=== PATIENT | male | born 1975 | race Caucasian/White ===

== ENCOUNTER 2023-04-06 16:21 | Emergency (ER) | payer OTHER ==
--- NOTE | 2023-04-06 17:22 | RAD REPORT ---
EXAM DESCRIPTION: RAD - Chest Single View - 04/06/2023 5:13 pm CLINICAL HISTORY: syncope Chest pain. COMPARISON: <Comparisons> FINDINGS: Portable technique limits examination quality. The lungs are grossly clear. The heart is normal in size. No displaced fractures. IMPRESSION: No acute intrathoracic process suspected.
[2023-04-06 17:28] LABS: Absolute Lymphocytes (CBC) 1.3 K/uL (0.7-4.9); Hematocrit 40.7 % (39.6-49.0); Lymphocytes % 10.2 % (15.3-44.8); MCV 96.1 fL (80-100); MPV 9.2 fL (7.6-11.3); Platelets 163 thou/uL (152-406); RBC Red Blood Cell Count 4.24 M/uL (4.33-5.43)
[2023-04-06 17:42] LABS: Albumin 3.3 g/dL (3.4-5.0); Bilirubin Direct 0.1 mg/dL (0-0.2); Bilirubin Indirect, Calculated 0.2 mg/dL (0.2-0.8); Bilirubin Total 0.3 mg/dL (0.2-1.0); Magnesium 1.9 mg/dL (1.6-2.4); Potassium 3.7 mEq/L (3.5-5.1); Protein, Total 6.3 g/dL (6.4-8.2); Thyroid Stimulating Hormone 1.88 uIU/mL (0.358-3.740); Troponin High Sensitivity 3.9 pg/mL (<58.9)
--- NOTE | 2023-04-06 18:03 | RAD REPORT ---
EXAM DESCRIPTION: CT - CTHCSPWOC - 04/06/2023 5:41 pm CLINICAL HISTORY: Trauma, head and neck injury. TRAUMA COMPARISON: No comparisons TECHNIQUE: Axial 5 mm thick images of the head were obtained. Axial 2 mm thick images of the cervical spine were obtained with sagittal and coronal reconstruction images generated and reviewed. All CT scans are performed using dose optimization technique as appropriate and may include automated exposure control or mA/KV adjustment according to patient size. FINDINGS: CT HEAD WITHOUT CONTRAST: No acute hemorrhage, hydrocephalus or extra-axial collection is identified.No areas of brain edema or midline shift. The paranasal sinuses and mastoids are clear.The calvarium is intact. CT CERVICAL SPINE WITHOUT CONTRAST: No fracture or subluxation.Prominent spondylosis with posterior osteophytes C5-6.No prevertebral soft tissues swelling is identified. IMPRESSION: No acute intracranial or cervical spine findings.
--- NOTE | 2023-04-06 18:40 | ER ---
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 ll1 EMS states: HR 50's , BP 60/40. 1 L NS bolus given, atropine .5 IV. Coronavirus screen: Client denies travel out of the [place] in the last 14 days. At this time, the client does not indicate any symptoms associated with coronavirus-19. Ebola Screen: Patient denies travel to an Ebola-affected area in the 21 days before illness onset. Initial Sepsis Screen: Does the patient meet any 2 criteria? No. Patient's initial sepsis screen is negative. Does the patient have a suspected source of infection? No. Patient's initial sepsis screen is negative. Risk Assessment: Do you want to hurt yourself or someone else? Patient reports no desire to harm self or others. Onset of symptoms was April 06, 2023. 16:51 Method Of Arrival: EMS: [facility] ll1 16:51 Acuity: REY 2 ll1 Triage Assessment: 16:50 General: Appears in no apparent distress. comfortable, Behavior is calm, cooperative, ld1 appropriate for age. Pain: Complains of pain in scalp Pain does not radiate. Pain currently is 7 out of 10 on a pain scale. Quality of pain is described as throbbing. EENT: No signs and/or symptoms were reported regarding the EENT system. EENT:. Neuro: Level of Consciousness is awake, alert, obeys commands, Oriented to person, place, time, situation, Reports dizziness, headache a syncopal episode. Cardiovascular: Capillary refill < 3 seconds Patient's skin is warm and dry. Rhythm is sinus rhythm. Respiratory: Airway is patent Respiratory effort is even, unlabored. GI: Abdomen is flat, non-distended. : No signs and/or symptoms were reported regarding the genitourinary system. Derm: No signs and/or symptoms reported regarding the dermatologic system. Musculoskeletal: No signs and/or symptoms reported regarding the musculoskeletal system. Historical: - Allergies: 16:53 No Known Allergies; ll1 - PMHx: 16:53 None; ll1 - PSHx: 16:53 None; ll1 - Immunization history:: Adult Immunizations up to date. - Social history:: Smoking status: Reported history of juuling and/or vaping. Smoking status: Patient reports the use of cigarette tobacco products, smokes one-half pack cigarettes per day. - Family history:: not pertinent. Screenin:05 [facility] ED Fall Risk Assessment (Adult) History of falling in the last 3 months, ld1 including since admission Yes- single mechanical fall (1 pt). Abuse screen: Denies threats or abuse. Denies injuries from another. Nutritional screening: No deficits noted. Tuberculosis screening: No symptoms or risk factors identified. Assessment: 17:05 General: Appears in no apparent distress. comfortable, Behavior is calm, cooperative, ld1 appropriate for age. Pain: Complains of pain in scalp Pain does not radiate. Pain currently is 8 out of 10 on a pain scale. Quality of pain is described as throbbing. Neuro: Level of Consciousness is awake, alert, obeys commands, Oriented to person, place, time, situation. Neuro: Reports dizziness, headache a syncopal episode. Cardiovascular: Capillary refill < 3 seconds Patient's skin is warm and dry. Rhythm is sinus rhythm. Respiratory: Airway is patent Respiratory effort is even, unlabored. GI: Abdomen is flat, non-distended. : No signs and/or symptoms were reported regarding the genitourinary system. EENT: No signs and/or symptoms were reported regarding the EENT system. Derm: No signs and/or symptoms reported regarding the dermatologic system. Musculoskeletal: No signs and/or symptoms reported regarding the musculoskeletal system. 18:02 Reassessment: Patient appears in no apparent distress at this time. No changes from ld1 previously documented assessment. Patient and/or family updated on plan of care and expected duration. Pain level reassessed. Patient is alert, oriented x 3, equal unlabored respirations, skin warm/dry/pink. Patient denies pain at this time. Vital Signs: 16:50 BP 110 / 71; Pulse 75; Resp 18; Temp 98(O); Pulse Ox 100% on R/A; Weight 83.91 kg; ld1 Height 6 ft. 1 in. ; Pain 2/10; 16:51 Weight 81.65 kg; Height 6 ft. 1 in. ; Pain 0/10; ll1 18:02 BP 116 / 65; Pulse 64; Resp 16; Pulse Ox 99% on R/A; Pain 0/10; ld1 16:51 Body Mass Index 23.75 (81.65 kg, 185.42 cm) ll1 16:50 Pain Scale: Adult ld1 16:51 Pain Scale: Adult ll1 18:02 Pain Scale: Adult ld1 ED Course: 16:50 Patient arrived in ED. ld1 16:50 Asher Bello MD is Attending Physician. rt 16:52 Triage completed. ll1 16:55 Leyda Vazquez RN is Primary Nurse. ld1 17:05 Patient has correct armband on for positive identification. Placed in gown. Bed in low ld1 position. Call light in reach. Side rails up X2. shipboard intelligence analyst on. Pulse ox on. NIBP on. Door closed. Noise minimized. Warm blanket given. 17:05 No provider procedures requiring assistance completed. Inserted saline lock: 22 gauge ld1 in right forearm, using aseptic technique. Blood collected. Missed attempt(s): 20 gauge in right forearm. 17:07 IV discontinued, intact, bleeding controlled, No redness/swelling at site. Pressure ll1 dressing applied. 17:15 XRAY Chest (1 view) In Process Unspecified. EDMS 17:40 CT Head C Spine In Process Unspecified. EDMS 18:39 Neri Longoria MD is Referral Physician. rt 18:42 Arm band placed on left wrist. ld1 Administered Medications: No medications were administered Medication: 17:05 VIS not applicable for this client. ld1 Outcome: 18:39 Discharge ordered by . rt 18:42 Discharged to home ambulatory. ld1 18:42 Condition: stable 18:42 Discharge instructions given to patient, family, Instructed on discharge instructions, follow up and referral plans. Demonstrated understanding of instructions, follow-up care. 18:43 Patient left the ED. ld1 Signatures: Dispatcher [employer] EDAlex Tatum RN RN ll1 Leyda Vazquez RN RN ld1 Asher Bello MD MD rt
--- NOTE | 2023-04-06 18:41 | EDPHYS ---
Physician Documentation [facility] Name: Bryant Crow Age: 47 yrs Sex: Male : 1975 Arrival Date: 04/06/2023 Time: 16:21 Bed 3 Private MD: ED Physician Asher Bello HPI: 04/06 19:48 This 47 yrs old Male presents to ER via EMS with complaints of Syncope. rt 19:48 Patient presents to the ED with a syncopal event. Patient was at a game room, became rt acutely lightheaded, diaphoretic, when he stood up, he passed out. Quickly regained consciousness. He had a second episode when he tried to stand up quickly at that time where he again passed out. EMS stated that his heart rate was about 50, states that his blood pressure was low. Atropine fluids were given. His vital signs normalized, he denies any complaints at this time other than a headache where he did hit his head. Denies any chest pain. Symptoms are moderate severity, no other aggravating or alleviating factors.. Historical: - Allergies: 16:53 No Known Allergies; ll1 - PMHx: 16:53 None; ll1 - PSHx: 16:53 None; ll1 - Immunization history:: Adult Immunizations up to date. - Social history:: Smoking status: Reported history of juuling and/or vaping. Smoking status: Patient reports the use of cigarette tobacco products, smokes one-half pack cigarettes per day. - Family history:: not pertinent. ROS: 19:48 Constitutional: Negative for fever, chills, and weight loss, Cardiovascular: Negative rt for chest pain, palpitations, and edema, Respiratory: Negative for shortness of breath, cough, wheezing, and pleuritic chest pain, Abdomen/GI: Negative for abdominal pain, nausea, vomiting, diarrhea, and constipation, MS/Extremity: Negative for injury and deformity, Psych: Negative for depression, anxiety, suicide ideation, homicidal ideation, and hallucinations. 19:48 Neuro: Positive for headache, syncope. Exam: 19:48 Constitutional: This is a well developed, well nourished patient who is awake, alert, rt and in no acute distress. Head/Face: Normocephalic, atraumatic. Chest/axilla: Normal chest wall appearance and motion. Nontender with no deformity. No lesions are appreciated. Cardiovascular: Regular rate and rhythm with a normal S1 and S2. No gallops, murmurs, or rubs. Normal PMI, no JVD. No pulse deficits. Respiratory: Lungs have equal breath sounds bilaterally, clear to auscultation and percussion. No rales, rhonchi or wheezes noted. No increased work of breathing, no retractions or nasal flaring. Abdomen/GI: Soft, non-tender, with normal bowel sounds. No distension or tympany. No guarding or rebound. No evidence of tenderness throughout. Skin: Warm, dry with normal turgor. Normal color with no rashes, no lesions, and no evidence of cellulitis. MS/ Extremity: Pulses equal, no cyanosis. Neurovascular intact. Full, normal range of motion. Neuro: Awake and alert, GCS 15, oriented to person, place, time, and situation. Cranial nerves II-XII grossly intact. Motor strength 5/5 in all extremities. Sensory grossly intact. Cerebellar exam normal. Normal gait. Psych: Awake, alert, with orientation to person, place and time. Behavior, mood, and affect are within normal limits. 19:48 ECG was reviewed by the Attending Physician. Vital Signs: 16:50 BP 110 / 71; Pulse 75; Resp 18; Temp 98(O); Pulse Ox 100% on R/A; Weight 83.91 kg; ld1 Height 6 ft. 1 in. ; Pain 2/10; 16:51 Weight 81.65 kg; Height 6 ft. 1 in. ; Pain 0/10; ll1 18:02 BP 116 / 65; Pulse 64; Resp 16; Pulse Ox 99% on R/A; Pain 0/10; ld1 16:51 Body Mass Index 23.75 (81.65 kg, 185.42 cm) ll1 16:50 Pain Scale: Adult ld1 16:51 Pain Scale: Adult ll1 18:02 Pain Scale: Adult ld1 MDM: 16:50 Patient medically screened. rt 19:48 Differential Diagnosis: Patient vagal syncope, symptomatic bradycardia, dysrhythmia, rt anemia, GI disturbance. Data reviewed: vital signs, nurses notes, lab test result(s), EKG, radiologic studies. Consideration of Admission/Observation Escalation of care including admission/observation considered. Patient has stable vital signs throughout his entire time in the emergency department. Unremarkable EKG, labs, CT scan. I suspect the patient had a vasovagal episode. I discussed this at length with the patient. He is able to walk without difficulties. No focal neurologic deficits. At this time, patient not likely to benefit from admission to the hospital. He is stable for outpatient care, strict return precautions were discussed.. Independent interpretation of the following test(s) in the Emergency Department CT Scan: My interpretation is No hemorrhage seen on interpretation of the CT scan images. Counseling: I had a detailed discussion with the patient and/or guardian regarding the historical points, exam findings, and any diagnostic results supporting the discharge/admit diagnosis, lab results, radiology results, the need for outpatient follow up, to return to the emergency department if symptoms worsen or persist or if there are any questions or concerns that arise at home. Response to treatment: the patient's symptoms have resolved after treatment. 04/06 16:50 Order name: Basic Metabolic Panel; Complete Time: 17:49 rt 04/06 16:50 Order name: CBC with Diff; Complete Time: 17:49 rt 04/06 16:50 Order name: LFT's; Complete Time: 17:49 rt 04/06 16:50 Order name: Magnesium; Complete Time: 17:49 rt 04/06 16:50 Order name: NT PRO-BNP; Complete Time: 17:49 rt 04/06 16:50 Order name: Troponin HS; Complete Time: 17:49 rt 04/06 16:50 Order name: ETOH Level; Complete Time: 17:49 rt 04/06 16:50 Order name: TSH; Complete Time: 17:49 rt 04/06 16:50 Order name: CPK; Complete Time: 17:49 rt 04/06 16:50 Order name: XRAY Chest (1 view); Complete Time: 17:49 rt 04/06 16:50 Order name: CT Head C Spine; Complete Time: 18:09 04/06 16:50 Order name: EKG; Complete Time: 16:51 04/06 16:50 Order name: Cardiac monitoring; Complete Time: 16:55 04/06 16:50 Order name: EKG - Nurse/Tech; Complete Time: 16:55 04/06 16:50 Order name: IV Saline Lock; Complete Time: 16:55 04/06 16:50 Order name: Labs collected and sent; Complete Time: 17:05 rt 04/06 16:50 Order name: O2 Per Protocol; Complete Time: 16:55 rt 04/06 16:50 Order name: O2 Sat Monitoring; Complete Time: 16:55 rt EC:48 Rate is 74 beats/min. Rhythm is regular, Normal Sinus Rhythm with No ectopy. QRS Pearson rt is Normal. PA interval is normal. QRS interval is normal. QT interval is normal. No Q waves. T waves are Normal. No ST changes noted. Interpreted by me. Administered Medications: No medications were administered Disposition Summary: 04/06/23 18:39 Discharge Ordered Location: Home rt Problem: new rt Symptoms: are resolved rt Condition: Stable rt Diagnosis - Vasovagal syncope rt Followup: rt - With: Neri Longoria MD - When: 5 - 6 days - Reason: Discharge Instructions: - Discharge Summary Sheet rt - Syncope rt Forms: - Medication Reconciliation Form rt - Thank You Letter rt - Antibiotic Education rt - Prescription Opioid Use rt - Patient Portal Instructions rt - Leadership Thank You Letter rt Signatures: Dispatcher [employer] Alex Mukherjee, RN RN ll1 Leyda Vazquez RN RN ld1 Asher Bello MD MD rt
[2023-04-06 18:53] VITALS: TEMP 98
[2023-04-06 18:56] VITALS: BP 116/65; O2SAT 99
--- NOTE | 2023-04-07 16:34 | EKG ---
Test Date: 2023-04-06 Test Time: 16:49:22 Address Change Clerk: LML MEASUREMENT RESULTS: Intervals: Rate: 74 AK: 126 QRSD: 102 QT: 398 QTc: 441 [place]: P: 24 AK: 126 QRS: 72 T: 60 INTERPRETIVE STATEMENTS: Normal sinus rhythm Moderate voltage criteria for LVH, may be normal variant Borderline ECG No previous ECG available for comparison Electronically Signed On 04-07-23 16:31:45 CDT by Neri Longoria
== END 2023-04-06 18:43 | disposition home or self-care (01) ==
LOC: ER 16:21
DX: R55 Syncope and collapse (principal); F17.210 Nicotine dependence, cigarettes, uncomplicated
CPT/HCPCS: 36415; 70450; 71045; 72125; 80048; 80076; 82077; 82550; 83735; 83880; 84443; 84484; 85025; 93005; 99284